=== PATIENT | male | born 1990 | race Caucasian/White ===

== ENCOUNTER 2018-02-09 01:08 | Emergency (ER) | payer MEDICAID ==
[~2018-02-09] VITALS: Ht 175.3 cm; Wt 81.7 kg
[~2018-02-09 01:08] MED LIST: DAY TIME COLD-1 EAC1 PO; TYLENOL325 MG PO
== END 2018-02-09 04:52 | disposition home or self-care (01) ==
LOC: ED 01:08
DX: T40.2X1A Poisoning by other opioids, accidental (unintentional), initial encounter (principal)
CPT/HCPCS: 80053; 80176; 81001; 85025; 96374; 99284; G0480; J2405